=== PATIENT | male | born 1935 | race Caucasian/White ===

== ENCOUNTER 2016-05-07 13:19 | Outpatient (RCR) | payer MEDICARE, MEDICAID | END 2016-06-03 | disposition home or self-care (01) | LOC: WCC 13:19 | DX: L97.421 Non-pressure chronic ulcer of left heel and midfoot limited to breakdown of skin (principal); I73.9 Peripheral vascular disease, unspecified; Z79.82 Long term (current) use of aspirin | CPT/HCPCS: G0463 ×2 ==

== ENCOUNTER 2017-06-24 12:50 | Outpatient (RCR) | payer MEDICARE, MEDICAID ==
[~2017-06-24] VITALS: Ht 165.1 cm; Wt 79.4 kg
== END 2017-07-01 | disposition home or self-care (01) ==
LOC: WCC 12:50
DX: L97.313 Non-pressure chronic ulcer of right ankle with necrosis of muscle (principal); L97.323 Non-pressure chronic ulcer of left ankle with necrosis of muscle; L03.116 Cellulitis of left lower limb; L03.115 Cellulitis of right lower limb; I73.9 Peripheral vascular disease, unspecified
CPT/HCPCS: 11043; 11046; 87070; 87181; 87205

== ENCOUNTER 2017-07-08 13:50 | Outpatient (RCR) | payer MEDICARE, MEDICAID | END 2017-08-01 | disposition home or self-care (01) | LOC: WCC 13:50 | DX: L97.313 Non-pressure chronic ulcer of right ankle with necrosis of muscle (principal); L97.323 Non-pressure chronic ulcer of left ankle with necrosis of muscle; L03.116 Cellulitis of left lower limb; L03.115 Cellulitis of right lower limb; I73.9 Peripheral vascular disease, unspecified; Z79.02 Long term (current) use of antithrombotics/antiplatelets | CPT/HCPCS: 11043; 29580; C5271; Q4102 ==